=== PATIENT | male | born 1940 | race Caucasian/White ===

== ENCOUNTER 2021-03-27 08:10 | Inpatient (IN) ==
[2021-03-27] MEDS ORDERED: Tirofiban 12.5 MG/250ML 12.5 MG/250 ML BAG ONE (08:42)
[2021-03-27] MEDS ORDERED: *HR* Midazolam HCl 2 MG/2 ML VIAL ONE (08:48)
[2021-03-27] MEDS ORDERED: *HR* FentaNYL (PF) 100 MCG/2 ML VIAL ONE (08:48)
[2021-03-27] MEDS ORDERED: *HR* Atropine Sulfate 1 MG/10 ML SYRINGE ONE (08:49)
[2021-03-27] MEDS ORDERED: Perflutren Lipid Microsphere 1.3 ML in 0.9 % Sodium Chloride 8.7 ML IVP PRN (09:06)
[2021-03-27] MEDS ORDERED: Tirofiban 12.5 MG/250ML 12.5 MG/250 ML BAG IVC SCH (09:15)
[2021-03-28 04:45] LABS: Basophils % 0.4 %; Eosinophils # 0.1 K/mcL (0.0-0.6); Eosinophils % 1.8 %; Hematocrit 45.3 % (37.5-50.1); Hemoglobin 14.8 g/dL (12.9-16.9); Immature Granulocytes % 0.1 % (0-4); Lymphocytes # 1.4 K/mcL (0.6-4.6); Lymphocytes % 18.5 %; Mean Corpuscular HGB Conc 32.7 g/dL (31.6-35.5); Mean Corpuscular Hemoglobin 28.6 pg (28.0-33.3); Mean Corpuscular Volume 87.5 fL (83.0-100.0); Mean Platelet Volume 9.8 fL (9.4-12.4); Monocytes # 0.7 K/mcL (0.0-1.3); Monocytes % 10.1 %; Neutrophils # 5.1 K/mcL (1.6-8.9); Platelet Count 176 K/mcL (140-400); Red Blood Count 5.18 M/mcL (4.19-5.50); Red Cell Distribution Width 14.5 % (11.5-14.5); Segmented Neutrophils % 69.1 %; White Blood Count 7.3 K/mcL (4.3-11.1)
[2021-03-28 05:01] LABS: BUN/Creatinine Ratio 19 (6-26); Blood Urea Nitrogen 17 mg/dL (8-23); Calcium 8.7 mg/dL (8.6-10.3); Carbon Dioxide 25 mEq/L (23-29); Chloride 106 mEq/L (98-107); Glucose 105 mg/dL (70-105); Osmolality,Calculated 288 (280-300); Potassium 3.8 mEq/L (3.5-5.1); Sodium 138 mEq/L (136-145); eGFR For African Americans > 60 (> 60); eGFR For Non-African Americans > 60 (> 60)
[2021-03-28] MEDS ORDERED: Metoprolol XL (24 HR) Succ 25 MG TAB.ER.24H PO SCH (09:00)
[2021-03-28] MEDS ORDERED: Aspirin 81 MG TAB.CHEW PO SCH (09:00)
[2021-03-28] MEDS ORDERED: *HR* HYDROcodone/Acet 5/325 mg TABLET PO PRN (19:30)
[2021-03-29] MEDS ORDERED: [UNRECOGNIZED DRUG - OTHER] PO SCH (09:00)
[2021-03-29] MEDS ORDERED: LYC PO SCH (09:00)
[2021-03-29] MEDS ORDERED: BETA PO SCH (09:00)
[2021-03-29] MEDS ORDERED: SOD SEL PO SCH (09:00)
[2021-03-29] MEDS ORDERED: Finasteride 5 MG TABLET PO SCH (09:00)
[2021-03-29] MEDS ORDERED: VIT E PO SCH (09:00)
[2021-03-29] MEDS ORDERED: Metoprolol XL (24 HR) Succ 25 MG TAB.ER.24H PO SCH (09:00)
[2021-03-29] MEDS ORDERED: PYG PO SCH (09:00)
[2021-03-29] MEDS ORDERED: Aspirin 81 MG TAB.CHEW PO SCH (09:00)
[2021-03-29] MEDS ORDERED: SAW PO SCH (09:00)
[2021-03-29] MEDS ORDERED: *HR* LORazepam 0.5 MG TABLET PO PRN (13:41)
[2021-03-29] MEDS ORDERED: Isovue-370 500 ML BOTTLE IVP ONE ×2 (14:14→14:26)
[2021-03-29] MEDS ORDERED: Nitroglycerin 0.4 MG TAB.SUBL SL PRN (14:18)
[2021-03-29] MEDS ORDERED: Ranolazine 500 MG TAB.ER.12H PO SCH (14:30)
[2021-03-29] MEDS ORDERED: Valsartan 80 MG TABLET PO SCH (14:30)
[2021-03-29 17:22] VITALS: BP 137/90
== END 2021-03-29 16:51 | disposition home or self-care (01) | DRG 251 ==
LOC: ICNU
PROVIDERS: ADMIT Internal Medicine Cardiovascular Disease; ATTEND Internal Medicine Cardiovascular Disease

== ENCOUNTER 2021-04-27 06:29 | Inpatient (IN) ==
[2021-04-27] MEDS ORDERED: *HR* Midazolam HCl 5 MG/5 ML VIAL IVP ONE ×2 (06:37→10:42)
[2021-04-27] MEDS ORDERED: *HR* FentaNYL (PF) 1,000 MCG/20 ML VIAL ONE (06:38)
[2021-04-27] MEDS ORDERED: *HR* Rocuronium Bromide 50 MG/5 ML VIAL ONE ×2 (06:40→10:59)
[2021-04-27] MEDS ORDERED: *HR* Etomidate 20 MG/10 ML AMPUL IVP ONE (06:42)
[2021-04-27] MEDS ORDERED: Famotidine 20 MG/2 ML VIAL ONE (06:42)
[2021-04-27] MEDS ORDERED: NiCARdipine 2.5 MG/10 ML Syringe IVPB ONE (06:52)
[2021-04-27] MEDS ORDERED: CeFAZolin Syr 2,000MG/20 ML 2,000 MG/20 ML SYRINGE IVPB ONE (07:01)
[2021-04-27] MEDS ORDERED: Chlorhexidine Rinse 15 ML MOUTHWASH MM STA (07:23)
[2021-04-27] MEDS ORDERED: Aspirin 325 MG TABLET PO STA (07:49)
[2021-04-27] MEDS ORDERED: Norepinephrine 4 MG in 0.9 % Sodium Chloride 250 ML IVC PRN (08:15)
[2021-04-27] MEDS ORDERED: Dextrose 50 % in Water (Vial) 30 ML, Sodium Bicarbonate 20 MEQ, Lidocaine 1% 5 ML, Insu... TH ONE ×3 (08:15)
[2021-04-27] MEDS ORDERED: Heparin 15,000 UNIT in 0.9 % Sodium Chloride 500 ML IV ONE (08:15)
[2021-04-27] MEDS ORDERED: Dextrose 50 % in Water (Vial) 30 ML, Sodium Bicarbonate 20 MEQ, Potassium Chloride 15 M... TH ONE (08:15)
[2021-04-27] MEDS ORDERED: Ringers Solution, Lactated 1,000 ML IVC SCH (08:30)
[2021-04-27] MEDS ORDERED: *HR* Phenylephrine 10 MG/ML VIAL IVC ONE (10:02)
[2021-04-27] MEDS ORDERED: *HR* Heparin 10,000 UNIT/10 ML VIAL IR ONE (10:02)
[2021-04-27] MEDS ORDERED: Tranexamic Acid 1,000 MG/10 ML VIAL IR ONE (10:02)
[2021-04-27] MEDS ORDERED: Albumin Human 25% 25 GM/100 ML IV.SOLN IVPB ONE (10:02)
[2021-04-27] MEDS ORDERED: D5% in Water 250 ML IV BAG IV ONE (10:02)
[2021-04-27] MEDS ORDERED: Mannitol 25% vial 12.5 GM/50 ML VIAL IVPB ONE (10:02)
[2021-04-27] MEDS ORDERED: Lidocaine 2% Syringe 100 MG/5 ML IVP ONE (10:02)
[2021-04-27] MEDS ORDERED: *HR* Magnesium Sulfate 2 GM/50 ML PIGGYBACK IVPB ONE (10:02)
[2021-04-27] MEDS ORDERED: Heparin 1,000 UNITS/500 mL IV.SOLN IR ONE (10:02)
[2021-04-27] MEDS ORDERED: Tranexamic Acid 1,000 MG/10 ML VIAL ONE (11:19)
[2021-04-27] MEDS ORDERED: *HR* Dextrose 50 % in Water (Syg) 50 ML SYRINGE ONE (13:39)
[2021-04-27] MEDS ORDERED: Acetaminophen 650 MG RECTAL SUPP RC PRN (13:45)
[2021-04-27] MEDS ORDERED: 0.9 % Sodium Chloride w KCl 20 MEQ/1,000 ML MLS IVC SCH (13:45)
[2021-04-27] MEDS ORDERED: Insulin Regular, Human 100 UNIT/ML IV PRN (13:45)
[2021-04-27] MEDS ORDERED: *HR* Dextrose 50 % in Water (Vial) 50 ML VIAL IVP PRN (13:45)
[2021-04-27] MEDS ORDERED: Ondansetron 4 MG/2 ML VIAL IVP PRN (13:45)
[2021-04-27] MEDS ORDERED: Potassium Chloride 40 MEQ/200 ML BAG IVPB PRN (13:45)
[2021-04-27] MEDS ORDERED: Calcium Gluconate 1gm/50mL 1 GM/50 ML BAG IVPB PRN (13:45)
[2021-04-27] MEDS ORDERED: Naloxone 0.4 MG/ML INJ IVP PRN (13:45)
[2021-04-27] MEDS ORDERED: Acetaminophen 325 MG TABLET PO PRN (13:45)
[2021-04-27] MEDS ORDERED: Albumin Human 5% 12.5 GM/250 ML IV.SOLN IVPB PRN (13:45)
[2021-04-27] MEDS ORDERED: Albumin Human 5% 50.0 GM/1,000 ML IV.SOLN ONE (14:31)
[2021-04-27 14:45] LABS: ABG Base Excess 1 mEq/L (-2 to 3); ABG HCO3 26 mEq/L (21-27); ABG Oxygen Saturation 100 % (95-98); ABG PCO2 43 mmHg (35-45); ABG PH 7.39 pH Units (7.32-7.45); ABG PO2 489 mmHg (85-104); ABG TCO2 27 mEq/L (20-26); Blood Gas VT 600 cc
[2021-04-27 14:47] LABS: Basophils # 0.1 K/mcL (0.0-0.2); Basophils % 0.4 %; Eosinophils # 0.1 K/mcL (0.0-0.6); Eosinophils % 0.5 %; Hematocrit 30.8 % (37.5-50.1); Hemoglobin 9.9 g/dL (12.9-16.9); Immature Granulocytes % 1.3 % (0-4); Lymphocytes # 0.8 K/mcL (0.6-4.6); Lymphocytes % 6.5 %; Mean Corpuscular HGB Conc 32.1 g/dL (31.6-35.5); Mean Corpuscular Volume 87.3 fL (83.0-100.0); Mean Platelet Volume 8.6 fL (9.4-12.4); Monocytes % 8.2 %; Neutrophils # 10.5 K/mcL (1.6-8.9); Platelet Count 133 K/mcL (140-400); Red Blood Count 3.53 M/mcL (4.19-5.50); Red Cell Distribution Width 14.9 % (11.5-14.5); Segmented Neutrophils % 83.1 %; White Blood Count 12.6 K/mcL (4.3-11.1)
[2021-04-27 14:58] LABS: INR 1.5; Prothrombin Time 17.3 Seconds (9.4-12.1)
[2021-04-27 15:01] LABS: Activated Partial Thrombo Time 28.1 Seconds (26.0-36.0)
[2021-04-27 15:04] LABS: BUN/Creatinine Ratio 20 (6-26); Blood Urea Nitrogen 19 mg/dL (8-23); Calcium 8.2 mg/dL (8.6-10.3); Carbon Dioxide 24 mEq/L (23-29); Chloride 107 mEq/L (98-107); Glucose 120 mg/dL (70-105); Magnesium 2.3 mg/dL (1.6-2.6); Osmolality,Calculated 285 (280-300); Potassium 3.8 mEq/L (3.5-5.1); Sodium 136 mEq/L (136-145); eGFR For African Americans > 60 (> 60); eGFR For Non-African Americans > 60 (> 60)
[2021-04-27] MEDS: niCARdipine 20 MG/200 ML MLS IVC SCH ×2 (15:20→18:26)
[2021-04-27] MEDS: Norepinephrine 4 MG/254 ML IV.SOLN IVC SCH (15:20)
[2021-04-27] MEDS: *HR* FentaNYL (PF) 100 MCG/2 ML VIAL IVP PRN ×2 (16:10→19:51)
[2021-04-27] MEDS: Metoclopramide 10 MG/2 ML VIAL IVP SCH ×2 (17:11→23:50)
[2021-04-27] MEDS: CeFAZolin 2 GM/120 ML BAG IVPB SCH ×2 (17:12→23:51)
[2021-04-27] MEDS: *HR* OxyCODONE/APAP 5/325 TABLET PO PRN (17:12)
[2021-04-27 19:43] LABS: ABG Base Excess -3 mEq/L (-2 to 3); ABG HCO3 20 mEq/L (21-27); ABG Oxygen Saturation 97 % (95-98); ABG PCO2 29 mmHg (35-45); ABG PH 7.45 pH Units (7.32-7.45); ABG PO2 84 mmHg (85-104); ABG TCO2 21 mEq/L (20-26); Blood Gas VT 600 cc
[2021-04-27] MEDS: Chlorhexidine Rinse 15 ML MOUTHWASH MM SCH (19:51)
[2021-04-28 00:05] LABS: ABG Base Excess -2 mEq/L (-2 to 3); ABG HCO3 22 mEq/L (21-27); ABG Oxygen Saturation 98 % (95-98); ABG PCO2 30 mmHg (35-45); ABG PH 7.46 pH Units (7.32-7.45); ABG PO2 90 mmHg (85-104); ABG TCO2 23 mEq/L (20-26); Blood Gas Pressure Support 5 cm H2O
[2021-04-28] MEDS: *HR* FentaNYL (PF) 100 MCG/2 ML VIAL IVP PRN ×2 (00:14→05:14)
[2021-04-28] MEDS: *HR* OxyCODONE/APAP 5/325 TABLET PO PRN ×6 (00:14→23:08)
[2021-04-28 01:31] LABS: ABG Base Excess -1 mEq/L (-2 to 3); ABG HCO3 21 mEq/L (21-27); ABG Oxygen Saturation 98 % (95-98); ABG PCO2 25 mmHg (35-45); ABG PH 7.53 pH Units (7.32-7.45); ABG PO2 83 mmHg (85-104); ABG TCO2 21 mEq/L (20-26); Blood Gas Pressure Support 5 cm H2O
[2021-04-28] MEDS: niCARdipine 20 MG/200 ML MLS IVC SCH ×7 (03:08→20:09)
[2021-04-28 04:17] LABS: ABG Base Excess -1 mEq/L (-2 to 3); ABG HCO3 23 mEq/L (21-27); ABG Oxygen Saturation 97 % (95-98); ABG PCO2 36 mmHg (35-45); ABG PH 7.41 pH Units (7.32-7.45); ABG PO2 90 mmHg (85-104); ABG TCO2 24 mEq/L (20-26)
[2021-04-28 04:29] LABS: Basophils % 0.3 %; Hematocrit 30.2 % (37.5-50.1); Hemoglobin 9.6 g/dL (12.9-16.9); Immature Granulocytes % 0.8 % (0-4); Lymphocytes % 8.4 %; Mean Corpuscular HGB Conc 31.8 g/dL (31.6-35.5); Mean Corpuscular Hemoglobin 27.8 pg (28.0-33.3); Mean Corpuscular Volume 87.5 fL (83.0-100.0); Mean Platelet Volume 9.3 fL (9.4-12.4); Monocytes % 8.7 %; Neutrophils # 9.7 K/mcL (1.6-8.9); Platelet Count 172 K/mcL (140-400); Red Blood Count 3.45 M/mcL (4.19-5.50); Segmented Neutrophils % 81.8 %; White Blood Count 11.9 K/mcL (4.3-11.1)
[2021-04-28 04:49] LABS: BUN/Creatinine Ratio 18 (6-26); Blood Urea Nitrogen 18 mg/dL (8-23); Calcium 7.8 mg/dL (8.6-10.3); Carbon Dioxide 23 mEq/L (23-29); Chloride 107 mEq/L (98-107); Glucose 128 mg/dL (70-105); Magnesium 2.1 mg/dL (1.6-2.6); Osmolality,Calculated 286 (280-300); Potassium 4.2 mEq/L (3.5-5.1); Sodium 136 mEq/L (136-145); eGFR For African Americans > 60 (> 60); eGFR For Non-African Americans > 60 (> 60)
[2021-04-28 04:51] LABS: INR 1.2; Prothrombin Time 13.8 Seconds (9.4-12.1)
[2021-04-28 04:53] LABS: Activated Partial Thrombo Time 25.2 Seconds (26.0-36.0)
[2021-04-28] MEDS: Metoclopramide 10 MG/2 ML VIAL IVP SCH ×4 (05:00→23:08)
[2021-04-28] MEDS: Aspirin Enteric Coated 81 MG Tablet PO SCH (07:50)
[2021-04-28] MEDS: Chlorhexidine Rinse 15 ML MOUTHWASH MM SCH ×2 (07:50→20:04)
[2021-04-28] MEDS: Furosemide 20 MG/2 ML VIAL IVP SCH ×2 (07:50→20:05)
[2021-04-28] MEDS ORDERED: D5% in Water 1,000 ML IVC PRN (08:26)
[2021-04-28] MEDS ORDERED: Dextrose Gel 15 GM/37.5 ML TUBE PO PRN ×2 (08:26)
[2021-04-28] MEDS ORDERED: *HR* Dextrose 50 % in Water (Vial) 50 ML VIAL IVP PRN (08:26)
[2021-04-28] MEDS ORDERED: Pantoprazole 40 MG VIAL IVP SCH (09:00)
[2021-04-28] MEDS ORDERED: *HR* FentaNYL (PF) 100 MCG/2 ML VIAL IVP PRN (09:00)
[2021-04-28] MEDS: Insulin LISPRO 300 UNITS/3 ML VIAL SUBQ SCH ×2 (11:55→16:45)
[2021-04-28] MEDS: Norepinephrine 4 MG/254 ML IV.SOLN IVC SCH (13:21)
[2021-04-28] MEDS ORDERED: Insulin LISPRO 300 UNITS/3 ML VIAL SUBQ SCH (21:00)
[2021-04-29] MEDS ORDERED: Amiodarone Premix 360 MG/200 ML BAG IVC ONE (00:21)
[2021-04-29] MEDS: niCARdipine 20 MG/200 ML MLS IVC SCH ×2 (03:45→05:52)
[2021-04-29 03:53] LABS: Basophils % 0.2 %; Eosinophils # 0.1 K/mcL (0.0-0.6); Eosinophils % 0.4 %; Hematocrit 31.2 % (37.5-50.1); Hemoglobin 10.1 g/dL (12.9-16.9); Immature Granulocytes % 0.5 % (0-4); Lymphocytes # 1.8 K/mcL (0.6-4.6); Lymphocytes % 13.8 %; Mean Corpuscular HGB Conc 32.4 g/dL (31.6-35.5); Mean Corpuscular Hemoglobin 28.4 pg (28.0-33.3); Mean Corpuscular Volume 87.6 fL (83.0-100.0); Mean Platelet Volume 9.4 fL (9.4-12.4); Monocytes # 1.4 K/mcL (0.0-1.3); Monocytes % 10.9 %; Neutrophils # 9.5 K/mcL (1.6-8.9); Platelet Count 180 K/mcL (140-400); Red Blood Count 3.56 M/mcL (4.19-5.50); Red Cell Distribution Width 15.2 % (11.5-14.5); Segmented Neutrophils % 74.2 %; White Blood Count 12.8 K/mcL (4.3-11.1)
[2021-04-29 04:03] LABS: BUN/Creatinine Ratio 17 (6-26); Blood Urea Nitrogen 15 mg/dL (8-23); Calcium 8.3 mg/dL (8.6-10.3); Carbon Dioxide 27 mEq/L (23-29); Chloride 104 mEq/L (98-107); Glucose 152 mg/dL (70-105); Osmolality,Calculated 288 (280-300); Sodium 137 mEq/L (136-145); eGFR For African Americans > 60 (> 60); eGFR For Non-African Americans > 60 (> 60)
[2021-04-29] MEDS: Metoclopramide 10 MG/2 ML VIAL IVP SCH ×3 (05:53→16:55)
[2021-04-29] MEDS: *HR* OxyCODONE/APAP 5/325 TABLET PO PRN (06:06)
[2021-04-29] MEDS ORDERED: Amiodarone Premix 360 MG/200 ML BAG IVC SCH ×2 (06:22→08:08)
[2021-04-29] MEDS: Insulin LISPRO 300 UNITS/3 ML VIAL SUBQ SCH ×4 (07:12→22:06)
[2021-04-29] MEDS: Aspirin Enteric Coated 81 MG Tablet PO SCH ×2 (07:14→08:45)
[2021-04-29] MEDS: Chlorhexidine Rinse 15 ML MOUTHWASH MM SCH ×3 (07:14→20:17)
[2021-04-29] MEDS: Furosemide 20 MG/2 ML VIAL IVP SCH ×3 (07:14→16:55)
[2021-04-29] MEDS ORDERED: *HR* Dextrose 50 % in Water (Vial) 50 ML VIAL IVP PRN (08:08)
[2021-04-29] MEDS ORDERED: *HR* FentaNYL (PF) 100 MCG/2 ML VIAL IVP PRN (08:08)
[2021-04-29] MEDS ORDERED: Naloxone 0.4 MG/ML INJ IVP PRN (08:08)
[2021-04-29] MEDS ORDERED: Nitroglycerin 0.4 MG TAB.SUBL SL PRN (08:08)
[2021-04-29] MEDS ORDERED: Insulin Regular, Human 100 UNIT/ML IV PRN (08:08)
[2021-04-29] MEDS ORDERED: D5% in Water 1,000 ML IVC PRN (08:08)
[2021-04-29] MEDS ORDERED: *HR* OxyCODONE/APAP 5/325 TABLET PO PRN (08:08)
[2021-04-29] MEDS ORDERED: Ondansetron 4 MG/2 ML VIAL IVP PRN (08:08)
[2021-04-29] MEDS ORDERED: Dextrose Gel 15 GM/37.5 ML TUBE PO PRN ×2 (08:08)
[2021-04-29] MEDS ORDERED: Acetaminophen 325 MG TABLET PO PRN (08:08)
[2021-04-29] MEDS: Finasteride 5 MG TABLET PO SCH (09:15)
[2021-04-29] MEDS: Valsartan 80 MG TABLET PO SCH (09:16)
[2021-04-30] MEDS: Metoclopramide 10 MG/2 ML VIAL IVP SCH ×4 (00:10→17:09)
[2021-04-30] MEDS: Amiodarone Premix 360 MG/200 ML BAG IVC SCH ×4 (02:39→20:19)
[2021-04-30] MEDS: Furosemide 20 MG/2 ML VIAL IVP SCH (07:58)
[2021-04-30] MEDS: Valsartan 80 MG TABLET PO SCH (07:58)
[2021-04-30] MEDS: Insulin LISPRO 300 UNITS/3 ML VIAL SUBQ SCH ×4 (07:58→20:24)
[2021-04-30] MEDS: Chlorhexidine Rinse 15 ML MOUTHWASH MM SCH ×2 (07:58→20:19)
[2021-04-30] MEDS: Aspirin Enteric Coated 81 MG Tablet PO SCH (07:58)
[2021-04-30] MEDS: Finasteride 5 MG TABLET PO SCH (07:58)
[2021-04-30] MEDS: *HR* Heparin 5,000 UNIT/ML VIAL SQ SCH ×2 (11:27→17:10)
[2021-05-01] MEDS: Amiodarone Premix 360 MG/200 ML BAG IVC SCH ×4 (02:27→20:20)
[2021-05-01] MEDS: *HR* Heparin 5,000 UNIT/ML VIAL SQ SCH ×2 (06:10→17:05)
[2021-05-01] MEDS: Finasteride 5 MG TABLET PO SCH (07:44)
[2021-05-01] MEDS: Chlorhexidine Rinse 15 ML MOUTHWASH MM SCH ×2 (07:44→20:17)
[2021-05-01] MEDS: Valsartan 80 MG TABLET PO SCH (07:44)
[2021-05-01] MEDS: Aspirin Enteric Coated 81 MG Tablet PO SCH (07:44)
[2021-05-01] MEDS: Insulin LISPRO 300 UNITS/3 ML VIAL SUBQ SCH ×4 (07:44→21:01)
[2021-05-02] MEDS: Amiodarone Premix 360 MG/200 ML BAG IVC SCH (02:23)
[2021-05-02] MEDS: *HR* Heparin 5,000 UNIT/ML VIAL SQ SCH (06:05)
[2021-05-02 07:11] VITALS: BP 103/62; TEMP 99.4; O2SAT 96
[2021-05-02] MEDS: Finasteride 5 MG TABLET PO SCH (08:27)
[2021-05-02] MEDS: Valsartan 80 MG TABLET PO SCH (08:27)
[2021-05-02] MEDS: Chlorhexidine Rinse 15 ML MOUTHWASH MM SCH (08:27)
[2021-05-02] MEDS: Aspirin Enteric Coated 81 MG Tablet PO SCH (08:27)
[2021-05-02] MEDS: Insulin LISPRO 300 UNITS/3 ML VIAL SUBQ SCH (08:37)
[2021-05-02 08:53] VITALS: PULSE 70
== END 2021-05-02 10:03 | disposition home or self-care (01) | DRG 236 ==
LOC: SAMDAY 06:29 → ICNU 14:13 → 2NNU 04-29 13:13
PROVIDERS: ADMIT Thoracic Surgery (Cardiothoracic Vascular Surgery); ATTEND Thoracic Surgery (Cardiothoracic Vascular Surgery)

== ENCOUNTER 2021-05-11 21:58 | Observation (INO) ==
[2021-05-12] MEDS ORDERED: Melatonin 3 MG TABLET PO PRN (01:30)
[2021-05-12] MEDS ORDERED: Acetaminophen 325 MG TABLET PO PRN (01:30)
[2021-05-12] MEDS ORDERED: Ondansetron 4 MG/2 ML VIAL IVP PRN (01:30)
[2021-05-12] MEDS ORDERED: Naloxone 0.4 MG/ML INJ IVP PRN (01:30)
[2021-05-12] MEDS ORDERED: 0.9 % Sodium Chloride 1,000 ML IVC SCH (01:30)
[2021-05-12 05:28] LABS: Basophils % 0.2 %; Eosinophils # 0.1 K/mcL (0.0-0.6); Eosinophils % 1.1 %; Hematocrit 26.9 % (37.5-50.1); Hemoglobin 9.2 g/dL (12.9-16.9); Immature Granulocytes % 2.3 % (0-4); Lymphocytes # 0.8 K/mcL (0.6-4.6); Lymphocytes % 6.7 %; Mean Corpuscular HGB Conc 34.2 g/dL (31.6-35.5); Mean Corpuscular Volume 81.8 fL (83.0-100.0); Mean Platelet Volume 9.5 fL (9.4-12.4); Monocytes # 0.8 K/mcL (0.0-1.3); Monocytes % 6.9 %; Neutrophils # 9.9 K/mcL (1.6-8.9); Platelet Count 375 K/mcL (140-400); Red Blood Count 3.29 M/mcL (4.19-5.50); Red Cell Distribution Width 14.8 % (11.5-14.5); Segmented Neutrophils % 82.8 %
[2021-05-12 05:42] LABS: Albumin 2.8 g/dL (3.5-5.7); Bilirubin,Total 0.6 mg/dL (0.3-1.0); Calcium 8.2 mg/dL (8.6-10.3); Globulin 2.7 g/dL (2.4-3.5); Magnesium 2.6 mg/dL (1.6-2.6); Potassium 3.6 mEq/L (3.5-5.1); Total Protein 5.5 g/dL (6.4-8.9)
[2021-05-12] MEDS ORDERED: Aspirin 81 MG TAB.CHEW PO SCH (09:00)
[2021-05-12] MEDS ORDERED: *HR* Amiodarone 200 MG TABLET PO SCH (09:00)
[2021-05-12] MEDS ORDERED: Finasteride 5 MG TABLET PO SCH (09:00)
[2021-05-12] MEDS ORDERED: Ranolazine 500 MG TAB.ER.12H PO SCH (09:00)
[2021-05-12] MEDS ORDERED: Metoprolol XL (24 HR) Succ 25 MG TAB.ER.24H PO SCH (09:00)
[2021-05-12 11:26] VITALS: BP 122/72; PULSE 60; TEMP 97.9; O2SAT 100
[2021-05-12] MEDS ORDERED: Nitroglycerin 0.4 MG TAB.SUBL SL PRN (14:23)
[2021-05-12] MEDS ORDERED: *HR* OxyCODONE/APAP 5/325 TABLET PO PRN (14:23)
[2021-05-12] MEDS ORDERED: *HR* Heparin 5,000 UNIT/ML VIAL SQ SCH (18:00)
[2021-05-12] MEDS ORDERED: RANOLAZINE 1000 MG PO SCH (21:00)
[2021-05-13] MEDS ORDERED: amLODIPine 5 MG TABLET PO SCH (09:00)
== END 2021-05-12 15:09 | disposition left against medical advice (07) ==
LOC: CDU → SUATTDRO 23:29
PROVIDERS: ADMIT Family Medicine; ATTEND Internal Medicine